=== PATIENT | male | born 1945 | race Caucasian/White ===

== ENCOUNTER 2017-06-03 13:12 | Emergency (ER) | payer OTHER ==
[~2017-06-03] VITALS: Ht 152.4 cm; Wt 87.0 kg
[2017-06-03 13:16] VITALS: Ht 152.4 cm; Wt 87.0 kg
[2017-06-03 16:08] LABS: ABNORMAL IP MESSAGE 1; BASOPHILS % 0.5 % (0.0-2.0); EOSINOPHILS # 0.1 10^3/ul (0.0-0.5); EOSINOPHILS % 1.7 % (0.0-7.0); HEMATOCRIT 28.9 % (42.0-52.0); HEMOGLOBIN 9.5 g/dl (14.0-18.0); LYMPHOCYTES # 0.7 10^3/ul (0.8-2.9); LYMPHOCYTES % 16.6 % (15.0-51.0); MEAN CORPUSCULAR HEMOGLOBIN 27.8 pg (29.0-33.0); MEAN CORPUSCULAR HGB CONC 32.9 g/dl (32.0-37.0); MEAN CORPUSCULAR VOLUME 84.5 fl (82.0-101.0); MEAN PLATELET VOLUME 10.5 fl (7.4-10.4); MONOCYTE # 0.2 10^3/ul (0.3-0.9); MONOCYTES % 5.2 % (0.0-11.0); NEUTROPHIL # 3.1 10^3/ul (1.6-7.5); NEUTROPHILS % 75.8 % (39.0-77.0); PLATELET COUNT 65 10^3/UL (140-415); POSITIVE DIFF @See below; RED BLOOD COUNT 3.42 10^6/ul (4.70-6.10); RED CELL DISTRIBUTION WIDTH 14.6 % (11.5-14.5)
[2017-06-03] MEDS ORDERED: IBUP-1542 PO (16:17)
[2017-06-03] MEDS ORDERED: ACET1TAB40 PO (16:18)
[2017-06-03] MEDS ORDERED: CALC-74 PO (16:19)
[2017-06-03] MEDS ORDERED: FAMO20TA18 PO (16:22)
[2017-06-03] MEDS ORDERED: SIMV20TA PO (16:22)
[2017-06-03] MEDS ORDERED: METF1000 PO (16:22)
[2017-06-03] MEDS ORDERED: GLIP-95 PO (16:23)
[2017-06-03] MEDS ORDERED: TERA2CAP3 PO (16:24)
[2017-06-03 16:35] LABS: ALANINE AMINOTRANSFERASE 29 IU/L (13-69); ALBUMIN 3.5 g/dl (3.3-4.9); ALKALINE PHOSPHATASE 77 IU/L (42-121); ANION GAP 15 (8-16); ASPARTATE AMINO TRANSFERASE 25 IU/L (15-46); BILIRUBIN,INDIRECT 0.3 mg/dl (0-1.1); BILIRUBIN,TOTAL 0.3 mg/dl (0.2-1.3); BLOOD UREA NITROGEN 14 mg/dl (7-20); CALCIUM 8.8 mg/dl (8.4-10.2); CARBON DIOXIDE 22 mmol/L (21-31); CHLORIDE 108 mmol/L (97-110); CREATININE 0.82 mg/dl (0.61-1.24); GLUCOSE 183 mg/dl (70-220); POTASSIUM 4.2 mmol/L (3.5-5.1); SODIUM 141 mmol/L (135-144)
--- NOTE | 2017-06-03 16:39 | RADRPT ---
PROCEDURE: Chest x-ray CLINICAL INDICATION: Chest pain TECHNIQUE: Chest single view COMPARISON: None FINDINGS: The heart is normal in size. The pulmonary vessels are normal in caliber. The lungs are clear. Th e costophrenic angles are sharp. The visualized bony thorax is unremarkable. IMPRESSION: No acute cardiopulmonary disease. RPTAT: HH .Bear Panda MD, Date Time Electronically viewed and signed by .Bear Panda MD, MD on 06/03/2017 16:38 .W/
[2017-06-03 16:40] LABS: ADD UMIC NO; UR ASCORBIC ACID 20 mg/dL (NEGATIVE); UR BILIRUBIN (Dip) NEGATIVE (NEGATIVE); UR BLOOD (Dip) NEGATIVE (NEGATIVE); UR CLARITY CLEAR (CLEAR); UR COLOR YELLOW (YELLOW); UR GLUCOSE (Dip) NEGATIVE (NEGATIVE); UR KETONES (Dip) TRACE mg/dL (NEGATIVE); UR LEUKOCYTE ESTERASE (Dip) NEGATIVE Leu/ul (NEGATIVE); UR NITRITE (Dip) NEGATIVE (NEGATIVE); UR SPECIFIC GRAVITY (Dip) 1.028 (1.003-1.030); UR TOTAL PROTEIN (Dip) NEGATIVE (NEGATIVE); UR UROBILINOGEN (Dip) 1+ mg/dL (NEGATIVE)
[2017-06-03 16:46] LABS: B-TYPE NATRIURETIC PEPTIDE 156 PG/ML (0-125)
[2017-06-03 16:52] LABS: TROPONIN-I < 0.012 ng/ml (0.00-0.12)
[2017-06-03 17:00] VITALS: TEMP 98.4
[2017-06-03] MEDS ORDERED: FURO-109 PO (18:24)
[2017-06-03] MEDS ORDERED: FUROSEMIDE 40 MG INJ IV ONE (18:30)
--- NOTE | 2017-06-03 18:31 | ERD ---
ER Documentation Chief Complaint Chief Complaint FEELS TIRED, SOB, TODAY HPI This is a 71-year-old male who is a slightly poor historian. The patient states that the reason here is because his blood sugar has been abnormal but he states that it was 70-90 at home. The patient states compliance with his medications. He states generalized malaise and weakness today. He did describe some mild shortness of breath but no chest pain and no exertional symptoms. He has noted that his lower extremities have been more swollen with edema lately. He does describe a history of CHF. He denies any significant PND orthopnea or dyspnea on exertion. No fevers or chills or cough. No abdominal pain. ROS All systems reviewed and are negative except as per history of present illness. Medications Home Meds Active Scripts Furosemide* (Lasix*) 40 Mg Tablet, 40 MG PO DAILY, #4 TAB Prov:JANIS LAWS MD 06/03/17 Reported Medications Terazosin Hcl* (Terazosin Hcl*) 2 Mg Capsule, 2 MG PO DAILY, CAP 06/03/17 Glipizide* (Glipizide*) 10 Mg Tablet, 20 MG PO AC BREAKFAST, TAB 06/03/17 Simvastatin* (Zocor*) 20 Mg Tablet, 20 MG PO DAILY, #30 TAB 06/03/17 Famotidine* (Famotidine*) 20 Mg Tablet, 20 MG PO BID, #60 TAB 06/03/17 Metformin Hcl* (Metformin Hcl*) 1,000 Mg Tablet, 1000 MG PO WITH BREAKFAST DINNE , #60 TAB 06/03/17 Calcium Carbonate-Vit D3-Minerals (Calcium 600 + D + Minerals) 1 Each Tablet, 1 TAB PO BID WITH MEALS, TAB 06/03/17 Acetaminophen with Codeine (Acetaminophen-Cod #3 Tablet) 1 Each Tablet, 1 TAB PO TID, #7 TAB 06/03/17 Ibuprofen* (Ibuprofen*) 600 Mg Tablet, 600 MG PO TID Y for PAIN, TAB 06/03/17 Allergies Allergies: Coded Allergies: Penicillins (Verified Allergy, Intermediate, RASH, 06/03/17) PMhx/Soc History of Surgery: No Hx Neurological Disorder: No Hx Respiratory Disorders: No Hx Cardiac Disorders: Yes (HLD) Hx Psychiatric Problems: No Hx Miscellaneous Medical Probl: Yes (DM, GERD, OSTEOPOROSIS) Hx Alcohol Use: No Hx Substance Use: No Hx Tobacco Use: No Smoking Status: Never smoker FmHx Family History: diabetes, No coronary disease Physical Exam Vitals Vital Signs Date Time Temp Pulse Resp B/P Pulse Ox O2 Delivery O2 Flow Rate FiO2 06/03/17 17:00 98.4 77 20 138/65 95 Room Air 06/03/17 15:00 97.1 84 16 150/59 95 Nasal Cannula 06/03/17 14:00 Nasal Cannula 2 06/03/17 13:16 98.0 84 18 170/72 99 Physical Exam General: Well developed, well nourished, no acute distress Head: Normocephalic, atraumatic. Eyes: Pupils equally reactive, EOM intact ENT: Moist mucous membranes Neck: Supple, no lymphadenopathy Respiratory: Lungs clear bilaterally, no distress Cardiovascular: RRR, no murmurs, rubs, or gallops Abdominal: Soft, non-tender, non-distended, no peritoneal signs : Deferred MSK: 2+ lower extremity pitting bilateral edema, no unilateral swelling, 5/5 strength Neurologic: Alert and oriented, moving all extremities, normal speech, no focal weakness, no cerebellar signs Skin: No rash Psych: Normal mood Result Diagram: 06/03/17 1545 06/03/17 1545 Results 24 hrs Laboratory Tests Test 06/03/17 15:12 06/03/17 15:45 06/03/17 16:25 Bedside Glucose 190mg/dL White Blood Count 4.010^3/ul Red Blood Count 3.4210^6/ul Hemoglobin 9.5g/dl Hematocrit 28.9% Mean Corpuscular Volume 84.5fl Mean Corpuscular Hemoglobin 27.8pg Mean Corpuscular Hemoglobin Concent 32.9g/dl Red Cell Distribution Width 14.6% Platelet Count 6510^3/UL Mean Platelet Volume 10.5fl Neutrophils % 75.8% Lymphocytes % 16.6% Monocytes % 5.2% Eosinophils % 1.7% Basophils % 0.5% Nucleated Red Blood Cells % 0.0/100WBC Neutrophils # 3.110^3/ul Lymphocytes # 0.710^3/ul Monocytes # 0.210^3/ul Eosinophils # 0.110^3/ul Basophils # 0.010^3/ul Nucleated Red Blood Cells # 0.010^3/ul Sodium Level 141mmol/L Potassium Level 4.2mmol/L Chloride Level 108mmol/L Carbon Dioxide Level 22mmol/L Anion Gap 15 Blood Urea Nitrogen 14mg/dl Creatinine 0.82mg/dl Glucose Level 183mg/dl Calcium Level 8.8mg/dl Total Bilirubin 0.3mg/dl Direct Bilirubin 0.00mg/dl Indirect Bilirubin 0.3mg/dl Aspartate Amino Transf (AST/SGOT) 25IU/L Alanine Aminotransferase (ALT/SGPT) 29IU/L Alkaline Phosphatase 77IU/L Troponin I < 0.012ng/ml B-Type Natriuretic Peptide 156PG/ML Total Protein 7.0g/dl Albumin 3.5g/dl Globulin 3.50g/dl Albumin/Globulin Ratio 1.00 Urine Color YELLOW Urine Clarity CLEAR Urine pH 5.0 Urine Specific [place] 1.028 Urine Ketones TRACEmg/dL Urine Nitrite NEGATIVEmg/dL Urine Bilirubin NEGATIVEmg/dL Urine Urobilinogen 1+mg/dL Urine Leukocyte Esterase NEGATIVELeu/ul Urine Hemoglobin NEGATIVEmg/dL Urine Glucose NEGATIVEmg/dL Urine Total Protein NEGATIVEmg/dl Current Medications Medications (Trade) Dose Ordered Sig/Cherrie Route PRN Reason Start Time Stop Time Status Last Admin Dose Admin Furosemide (Lasix) 40 mg ONCE ONCE IV 06/03/17 18:30 06/03/17 18:31 DC Procedures/MDM EKG, MONITORS, & DIAGNOSTIC IMAGING: EKG: I reviewed and interpreted a 12-lead EKG. Rhythm: Normal sinus rhythm Ectopy: None Intervals: No abnormalities ST segments: No elevations or depressions T waves: No contiguous inversions Chest x-ray: I reviewed and interpreted a 1 view of the chest Mediastinum: No enlargement Cardiac silhouette: No cardiomegaly Airspace: Clear lung nieto bilaterally without evidence of pneumothorax Bones: No evidence of fracture LAB INTERPRETATION: The patient has pancytopenia that he reports is baseline. Negative troponin, negative BNP MEDICAL DECISION MAKING: The patient presents with generalized weakness and lower extremity swelling. He denies any significant shortness of breath PND orthopnea, no chest pain. A broad differential exists in this 71-year-old gentleman with history of diabetes. However, he is otherwise well-appearing with hemodynamic stability. He has no evidence of rales or volume overload other than peripheral edema. The patient does not take a diuretic. He was noted to have pancytopenia on his laboratory testing. He has no prior visits. I discussed this with him. He states that this is consistent with baseline and he has followed up with his primary care physician for this. For this reason I do not believe this is consistent with a blood malignancy and do not feel he requires hospitalization. He was advised to follow-up with his primary care physician and review these blood findings. The patient does not have evidence of overt volume overload other than peripheral edema. I do not believe this is consistent with acute decompensated congestive heart failure. For this reason I believe the patient will benefit from gentle diuresis and a 4 day course of Lasix. He was advised to follow with his primary care physician for further fluid management. I discussed compression stockings. He should return for any worsening symptoms, chest pain on exertion or decompensation. The patient feels very comfortable with this plan. I did discuss inpatient hospitalization but given that the patient is a relatively stable without evidence of pulmonary edema or respiratory distress with a negative troponin outpatient therapy may be reasonable. The patient is agreeable. ER COURSE: The patient was given 40 of Lasix. The patient continues to be well-appearing, medical decision making as discussed above. Outpatient management appropriate. I kept the patient and/or family informed of laboratory and diagnostic imaging results throughout the emergency room course. DISPOSITION PLAN: We discussed follow up with the patient's primary care doctor within 24 to 48 hours as needed. We also discussed return to the emergency room for worsening symptoms or worsening condition. Outpatient referral: [None required] Discharge Medications: Lasix for 4 days Departure Diagnosis: Primary Impression: Generalized weakness Additional Impressions: Peripheral edema Pancytopenia Condition: Stable Patient Instructions: Peripheral Edema, Bilateral Referrals: [facility] () Usted se evangelista hecho un examen mdico de control que le indica que no est en valentino condicin que requiera tratamiento urgente en el Departamento de Emergencia. Un estudio ms profundo y el tratamiento de mendoza condicin pueden esperar sin ningn riesgo hasta que usted sea atendida/o en el consultorio de mendoza mdico o valentino cl willis. Es responsabilidad suya arreglar valentino justin para el seguimiento del donnie. MANEJO DE CONDICIONES NO URGENTES EN EL FUTURO 1) Si usted tiene un mdico de atencin primaria: Usted debera llamar a mendoza mdico de atencin primaria antes de venir al departamento de emergencia. Despus de las horas de consultorio, mendoza doctor o mendoza asociado/a est disponible por telfono. El mdico o enfermero de real en el servicio telefnico puede asesorarle por robinson medio para atender el problema, o donnie contrario se puede programar valentino justin. 2) Si usted no tiene un mdico de atencin primaria: Llame al mdico o clnica de referencia que aparece abajo jacqueline las horas de consultorio para hacer valentino justin para que le vean. CLINICAS: [facility] [phone] [address] [facility] [phone] [address] [facility] [phone] [facility] [phone] [facility] [phone] [address] [facility] [phone] [address] [facility] [facility] () Usted se evangelista hecho un examen mdico de control que le indica que no est en valentino condicin que requiera tratamiento urgente en el Departamento de Emergencia. Un estudio ms profundo y el tratamiento de mendoza condicin pueden esperar sin ningn riesgo hasta que usted sea atendida/o en el consultorio de mendoza mdico o valentino cl willis. Es responsabilidad suya arreglar valentino justin para el seguimiento del donnie. MANEJO DE CONDICIONES NO URGENTES EN EL FUTURO 1) Si usted tiene un mdico de atencin primaria: Usted debera llamar a mendoza mdico de atencin primaria antes de venir al departamento de emergencia. Despus de las horas de consultorio, mendoza doctor o mendoza asociado/a est disponible por telfono. El mdico o enfermero de real en el servicio telefnico puede asesorarle por robinson medio para atender el problema, o donnie contrario se puede programar valentino justin. 2) Si usted no tiene un mdico de atencin primaria: Llame al mdico o condado institucions de referencia que aparece abajo jacqueline las horas de consultorio para hacer valentino justin para que le vean. SI USTED NO PUEDE PAGAR PARA KEITH UN MEDICO puede ir a: [facility] [address] [place] [address] [facility] [address] [place] [address] [facility] [address] [place] [address] [facility] [address] [place], [place] [id number] Additional Instructions: Llame al doctor nombrado abajo (Referral Sources) MAANA y ramiro valentino JUSTIN PARA DENTRO DE VALENTINO SEMANA. Dgale a la secretaria que nosotros le instruimos hacer esta justin.Avise o llame si mendoza condicin se empeora antes de la justin. JANIS LAWS MD Jun 03, 2017 18:31
[2017-06-03 20:04] VITALS: BP 110/50; PULSE 84; RESP 20
== END 2017-06-03 20:13 | disposition home or self-care (01) ==
LOC: E/R 13:12
DX: R53.1 Weakness (principal); D61.818 Other pancytopenia; R60.0 Localized edema; E11.9 Type 2 diabetes mellitus without complications; R06.02 Shortness of breath; Z79.84 Long term (current) use of oral hypoglycemic drugs
CPT/HCPCS: 36415; 71010; 80053; 81003; 82962; 83880; 84484; 85025; 93005; 96374; 99285; J1940